=== PATIENT | female | born 1945 | race Caucasian/White ===

== ENCOUNTER 2023-12-21 17:21 | Emergency (ER) | payer MEDICARE, BC ==
[~2023-12-21] VITALS: Ht 160 cm; Wt 67.7 kg
[2023-12-21] MEDS ORDERED: HYDR-3965 PO (18:21)
[2023-12-21] MEDS ORDERED: ONDA-243 PO (18:21)
[2023-12-21] MEDS: HYDROcodone/acetaminophen 5mg/325mg tablet PO ONE (18:43)
[2023-12-21] MEDS: ondansetron 4mg rapidly disintigrating tab PO ONE (18:43)
[2023-12-21] MEDS: acetaminophen 325mg tablet PO ONE (18:44)
[2023-12-21] MEDS: ketorolac trometh 15mg/ml vial 15 MG/ML ML IM ONE (18:44)
[2023-12-21] MEDS ORDERED: KETO10TA2 PO (18:51)
[2023-12-21 19:22] VITALS: BP 160/58; PULSE 61; RESP 24; TEMP 97.8; O2SAT 96
== END 2023-12-21 19:24 | disposition home or self-care (01) ==
LOC: ER 17:22
DX: S42.212A Unspecified displaced fracture of surgical neck of left humerus, initial encounter for closed fracture (principal); Z88.0 Allergy status to penicillin; Z79.899 Other long term (current) drug therapy; W19.XXXA Unspecified fall, initial encounter; Y93.89 Activity, other specified; Y92.89 Other specified places as the place of occurrence of the external cause; Y99.8 Other external cause status
CPT/HCPCS: 73030; 96372; 99284; A4565; J1885